=== PATIENT | female | born 1990 | race American Indian/Alaskan Native ===

== ENCOUNTER 2019-11-20 21:20 | Emergency (ER) | payer BC, OTHER ==
--- NOTE | 2019-11-20 21:33 | EDM.PDOC ---
ED HPI GENERAL MEDICAL PROBLEM - General Chief Complaint: Upper Extremity Injury/Pain Stated Complaint: POSSIBLE BLOOD CLOT LT LEG/DELIVERED BABY 11/14 Time Seen by Provider: 11/20/19 21:31 - History of Present Illness INITIAL COMMENTS - FREE TEXT/NARRATIVE: 29-year-old female presents the emergency room with left lower extremity pain. The patient is 5 days . Over the last 1-1/2 to 2 days is developed significant discomfort behind her knee. She has had progressive swelling around the knee but she has swelling throughout the extremity from being in a state. She is not having any breathing difficulties or shortness of breath no chest pain or chest pressure. She has no other complaints at this time. Left Upper Leg Pain Score (Numeric/FACES): 8 - Related Data Allergies Allergy/AdvReac Type Severity Reaction Status Date / Time No Known Allergies Allergy Verified 11/20/19 21:30 Home Meds: Home Meds . [No Known Home Meds] 11/20/19 [History] Review of Systems - Review of Systems Review Of Systems: See Below Constitutional: Reports: No Symptoms Respiratory: Reports: No Symptoms Cardiovascular: Reports: No Symptoms GI/Abdominal: Reports: No Symptoms Genitourinary: Reports: No Symptoms Musculoskeletal: Reports: No Symptoms Skin: Reports: No Symptoms Neurological: Reports: No Symptoms ED EXAM, GENERAL - Physical Exam Exam: See Below Exam Limited By: No Limitations General Appearance: Alert, No Apparent Distress Head: Atraumatic, Normocephalic Neck: Normal Inspection, Supple, Non-Tender, Full Range of Motion Respiratory/Chest: No Respiratory Distress, Lungs Clear, Normal Breath Sounds Cardiovascular: Regular Rate, Rhythm, No Edema, No Murmur GI/Abdominal: Normal Bowel Sounds, Soft, Non-Tender Back Exam: Other (Mild to moderate swelling both lower extremities. She has significant discomfort around the left knee especially in the popliteal fossa. She does not have a lot of calf tenderness does have some moderate thigh discomfort in the vicinity of the significant venous structures) Course - Vital Signs Last Recorded V/S: Last Vital Signs Temp 36.4 C 11/20/19 21: Pulse 80 11/20/19 21:27 Resp 18 11/20/19 21:27 BP 138/89 11/20/19 21:27 Pulse Ox 98 11/20/19 21:27 - Orders/Labs/Meds Orders: Active Orders 24 hr Category Date Time Status VL Duplex Lwr Ext Veins Ltd Lt [US] Stat Exams 11/20/19 21:49 Taken Labs: Laboratory Tests 11/20/19 11/20/19 11/20/19 Range/Units 22:05 22:05 22:05 WBC 5.50 (3.98-10.04) K/mm3 RBC 3.76 L (3.98-5.22) M/mm3 Hgb 10.6 L D (11.2-15.7) gm/dl Hct 33.9 L (34.1-44.9) % MCV 90.2 D (79.4-94.8) fl MCH 28.2 (25.6-32.2) pg MCHC 31.3 L (32.2-35.5) g/dl RDW Std Deviation 42.4 (36.4-46.3) fL Plt Count 281 (182-369) K/mm3 MPV 9.0 L (9.4-12.3) fl Neut % (Auto) 46.5 (34.0-71.1) % Lymph % (Auto) 38.5 (19.3-51.7) % [place] % (Auto) 8.7 (4.7-12.5) % Eos % (Auto) 5.5 (0.7-5.8) Baso % (Auto) 0.4 (0.1-1.2) % Neut # (Auto) 2.56 (1.56-6.13) K/mm3 Lymph # (Auto) 2.12 (1.18-3.74) K/mm3 [place] # (Auto) 0.48 H (0.24-0.36) K/mm3 Eos # (Auto) 0.30 (0.04-0.36) K/mm3 Baso # (Auto) 0.02 (0.01-0.08) K/mm3 PT 10.2 (9.7-12.0) SECONDS INR 0.93 APTT 27 (22-31) SECONDS Sodium 138 (136-145) mEq/L Potassium 3.6 (3.5-5.1) mEq/L Chloride 104 (98-107) mEq/L Carbon Dioxide 25 (21-32) mEq/L Anion Gap 12.6 (5-15) BUN 10 (7-18) mg/dL Creatinine 0.5 L (0.55-1.02) mg/dL Est Cr Clr Drug Dosing 207.31 mL/min Estimated GFR (MDRD) > 60 (>60) mL/min BUN/Creatinine Ratio 20.0 H (14-18) Glucose 87 (74-106) mg/dL Calcium 8.6 (8.5-10.1) mg/dL Total Bilirubin 0.3 (0.2-1.0) mg/dL AST 30 (15-37) U/L ALT 41 (14-59) U/L Alkaline Phosphatase 107 (46-116) U/L Total Protein 6.8 (6.4-8.2) g/dl Albumin 2.7 L (3.4-5.0) g/dl Globulin 4.1 gm/dL Albumin/Globulin Ratio 0.7 L (1-2) - Re-Assessments/Exams Free Text/Narrative Re-Assessment/Exam: 11/20/19 21:54 Proceed with a venous ultrasound to exclude blood clots d-dimer would not be very helpful 5 days . We will check some baseline labs as well. 11/20/19 23:35 Evaluation is unremarkable given her status she is got an anemia which is to be expected. But not severe. Ultrasound of the left leg shows no evidence of deep venous thrombosis. I discussed the findings of this with the patient and she is assured. I recommended she use her ibuprofen for her leg discomfort Departure - Departure Time of Disposition: 23:36 Disposition: Home, Self-Care 01 Clinical Impression: Left leg pain - Discharge Information Referrals: PCP,None [Primary Care Provider] - Forms: ED Department Discharge Additional Instructions: Return to the emergency room with any questions problems or worsening symptoms. Use your ibuprofen as directed be sure and take it with meals. Follow-up with your OB providers as scheduled, sooner if needed. Sepsis Event Note (ED) - Evaluation Sepsis Screening Result: No Definite Risk - Focused Exam Vital Signs: Vital Signs Temp Pulse Resp BP Pulse Ox 11/20/19 21:27 36.4 C 80 18 138/89 98 - My Orders Last 24 Hours: My Active Orders 11/20/19 21:49 VL Duplex Lwr Ext Veins Ltd Lt [US] Stat - Assessment/Plan Last 24 Hours: My Active Orders 11/20/19 21:49 VL Duplex Lwr Ext Veins Ltd Lt [US] Stat
[2019-11-20 23:46] VITALS: BP 121/91; PULSE 82
--- NOTE | 2019-11-21 07:26 | US ---
Left lower extremity deep venous ultrasound: Duplex and color Doppler evaluation was obtained of the left common femoral, proximal greater saphenous, superficial femoral, popliteal, posterior tibial and peroneal veins. Right common femoral vein was also evaluated. Comparison: No prior venous imaging is available. Findings: Normal phasic flow, augmentation and compression is seen. Impression: 1. No evidence of deep venous thrombosis within the left lower extremity or within the right common femoral vein. Diagnostic code #1 This report was dictated in MDT I agree with preliminary report from [facility], finalized on 11/21/19, 12:20 AM Central Daylight Time
== END 2019-11-20 23:47 | disposition home or self-care (01) ==
LOC: JD.ED 21:20
DX: O90.89 Other complications of the puerperium, not elsewhere classified (principal); M79.605 Pain in left leg
CPT/HCPCS: 36415; 80053; 85025; 85610; 85730; 93971-26-LT; 93971-LT; 99282; 99284-25

== ENCOUNTER 2022-02-02 13:44 | Inpatient (IN) | payer OTHER ==
[~2022-02-02 13:44] MED LIST: Ampicillin 2 GM in Sodium Chloride 0.9% 100 ML IV ONE; Bupivacaine/fentaNYL/NS 100 ML Bag EPIDUR ONE; Lactated Ringers 1,000 ML IV ONE
[2022-02-02] MEDS ORDERED: Ampicillin 1 GM in Sodium Chloride 0.9% 100 ML IV ONE (15:20)
[2022-02-02] MEDS ORDERED: Bupivacaine 0.25% 10 ML SDV EPIDUR ONE (15:20)
[2022-02-02] MEDS ORDERED: Diphtheria,Pertussis(Acell),Tetanus Vaccine 0.5 ML Syringe IM ONE (15:45)
[2022-02-02] MEDS ORDERED: Methylergonovine 0.2 MG/1 ML Amp IM ONE (16:50)
[2022-02-03] MEDS ORDERED: Measles, Mumps & Rubella Vaccine 0.5 ML SDV SUBCUT ONE (15:45)
[2022-02-03] MEDS ORDERED: Diphtheria,Pertussis(Acell),Tetanus Vaccine 0.5 ML Syringe IM ONE (15:45)
== END 2022-02-03 17:50 | disposition home or self-care (01) | DRG 807 ==
LOC: JD.OBCHECK 13:44 → JD.ZCENSUS 16:47
PROVIDERS: ADMIT Obstetrics & Gynecology; ATTEND Obstetrics & Gynecology
PROC: 10E0XZZ Delivery of Products of Conception, External Approach (ICD-10-PCS; principal; 2022-02-02)
PROC: 3E0R3BZ Introduction of Anesthetic Agent into Spinal Canal, Percutaneous Approach (ICD-10-PCS; 2022-02-02)
PROC: 3E0234Z Introduction of Serum, Toxoid and Vaccine into Muscle, Percutaneous Approach (ICD-10-PCS; 2022-02-02)
DX: O66.3 Obstructed labor due to other abnormalities of fetus (principal); Z37.0 Single live birth; Z3A.39 39 weeks gestation of pregnancy; O99.334 Smoking (tobacco) complicating childbirth; F17.210 Nicotine dependence, cigarettes, uncomplicated; O77.0 Labor and delivery complicated by meconium in amniotic fluid; Z23 Encounter for immunization; O70.0 First degree perineal laceration during delivery
CPT/HCPCS: 01967; 36415; 51701; 59025; 59409; 80306; 81001; 85025; 86592; 87653; J0290; J2210; J3490; J7120

== ENCOUNTER 2023-02-16 15:30 | Inpatient (IN) | payer OTHER, MEDICAID ==
[2023-02-16] MEDS ORDERED: Lidocaine 1% 50 ML MDV INJECT PRN (15:47)
[2023-02-16] MEDS ORDERED: Ondansetron 4 MG/2 ML SDV IVPUSH PRN (15:47)
[2023-02-16] MEDS ORDERED: Nalbuphine HCl 10 MG/ 1ML Amp IVPUSH PRN (15:47)
[2023-02-16] MEDS ORDERED: Oxytocin/Lactated Ringers 10 UNIT/1,000 ML BAG IV SCH ×2 (16:00)
[2023-02-16 16:08] LABS: BASOPHILS PERCENT AUTO 0.4 % (0.0-1.0); EOSINOPHILS ABSOLUTE AUTO 0.3 K/mm3 (0.0-0.4); EOSINOPHILS PERCENT AUTO 3.2 % (0.0-6.0); HEMATOCRIT 33.1 % (37.0-47.0); HEMOGLOBIN 10.6 gm/dl (12.0-16.0); IMMATURE GRAN ABSOLUTE AUTO 0.03 K/mm3 (0.00-0.05); IMMATURE GRAN PERCENT AUTO 0.4 % (0.0-0.4); LYMPHOCYTES ABSOLUTE AUTO 1.6 K/mm3 (1.0-4.8); LYMPHOCYTES PERCENT AUTO 20.1 % (24.0-44.0); MEAN CORPUSCULAR HEMOGLOBIN 25.4 pg (28.0-32.0); MEAN CORPUSCULAR VOLUME 79.4 fl (83.0-99.0); MEAN PLATELET VOLUME 9.1 fl (9.4-12.3); MONOCYTES ABSOLUTE AUTO 0.5 K/mm3 (0.0-0.8); MONOCYTES PERCENT AUTO 6.7 % (0.0-8.0); NEUTROPHILS ABSOLUTE AUTO 5.3 K/mm3 (1.8-7.7); NEUTROPHILS PERCENT AUTO 69.2 % (41.0-71.0); PLATELET COUNT,PLT 308 K/mm3 (150-400); RED BLOOD CELL COUNT 4.17 M/mm3 (4.10-5.30); WHITE BLOOD CELL COUNT,WBC 7.72 K/mm3 (3.9-11.3)
[2023-02-16] MEDS: Lactated Ringers 1,000 ML IV SCH ×4 (16:48→23:16)
[2023-02-16 19:00] LABS: BARBITURATE SCREEN,URINE NEGATIVE (CUTOFF=200); BENZODIAZEPINES SCREEN,URINE NEGATIVE (CUTOFF=150); BUPRENORPHINE SCREEN,URINE NEGATIVE (CUTOFF=10); METHADONE SCREEN, URINE NEGATIVE (CUTOFF=200); METHAMPHETAMINES SCREEN, URINE NEGATIVE (CUTOFF=500); OXYCODONE SCREEN,URINE NEGATIVE (CUT0FF=100); PROPOXYPHENE SCREEN,URINE NEGATIVE (CUTOFF=300); THC SCREEN,URINE 20 NG/ML NEGATIVE (CUTOFF=50)
[2023-02-16 19:06] LABS: AMPHETAMINES SCREEN, URINE NEGATIVE (CUTOFF=500)
[2023-02-16] MEDS ORDERED: fentaNYL 100 MCG/2 ML SDV EPIDUR PRN (19:49)
[2023-02-16] MEDS ORDERED: ePHEDrine 50 MG/ML SDV IVPUSH PRN (19:49)
[2023-02-16] MEDS ORDERED: diphenhydrAMINE 50 MG/ML SDV IVPUSH PRN (19:49)
[2023-02-16] MEDS ORDERED: Bupivacaine/fentaNYL/NS 100 ML Bag EPIDUR PRN (19:49)
[2023-02-17] MEDS ORDERED: Bupivacaine 0.25% 10 ML SDV ONE
[2023-02-17] MEDS ORDERED: Lidocaine 1% 10 ML MDV ONE
[2023-02-17] MEDS ORDERED: Misoprostol 200 MCG Tab ONE (01:10)
[2023-02-17] MEDS ORDERED: Misoprostol 200 MCG Tab BUCCAL STA (01:31)
[2023-02-17] MEDS ORDERED: Ibuprofen 600 MG Tab PO PRN (02:17)
[2023-02-17] MEDS ORDERED: Acetaminophen 325 MG Tab PO PRN (02:17)
[2023-02-17] MEDS ORDERED: Benzocaine/Menthol 20%-0.5% Spray 78 GM Cannister TOP PRN (02:17)
[2023-02-17] MEDS ORDERED: Witch Hazel Medicated Pads 40/Jar TOP PRN (02:17)
[2023-02-18 01:33] LABS: HEMATOCRIT 30.1 % (37.0-47.0); HEMOGLOBIN 9.4 gm/dl (12.0-16.0); MEAN CORPUSCULAR HEMOGLOBIN 25.1 pg (28.0-32.0); MEAN CORPUSCULAR HGB CONC 31.2 g/dl (32.0-36.0); MEAN CORPUSCULAR VOLUME 80.5 fl (83.0-99.0); MEAN PLATELET VOLUME 9.6 fl (9.4-12.3); PLATELET COUNT,PLT 236 K/mm3 (150-400); RED BLOOD CELL COUNT 3.74 M/mm3 (4.10-5.30); WHITE BLOOD CELL COUNT,WBC 9.11 K/mm3 (3.9-11.3)
[2023-02-18] MEDS ORDERED: Docusate Sodium 100 MG Cap PO PRN (02:48)
[2023-02-18 13:01] VITALS: BP 124/85; PULSE 81
== END 2023-02-18 13:00 | disposition home or self-care (01) | DRG 807 ==
LOC: JD.OBCHECK 15:30 → JD.OB 15:32 → JD.OBCHECK 15:40 → JD.OB 15:41 → OBSVTOIN 02-17 01:19 → JD.OB 02-17 01:20
PROVIDERS: ADMIT Obstetrics & Gynecology; ATTEND Obstetrics & Gynecology
PROC: 10E0XZZ Delivery of Products of Conception, External Approach (ICD-10-PCS; principal; 2023-02-17)
PROC: 10907ZC Drainage of Amniotic Fluid, Therapeutic from Products of Conception, Via Natural or Artificial Opening (ICD-10-PCS; 2023-02-17)
PROC: 10H07YZ Insertion of Other Device into Products of Conception, Via Natural or Artificial Opening (ICD-10-PCS; 2023-02-17)
DX: O36.8130 Decreased fetal movements, third trimester, not applicable or unspecified (principal); Z37.0 Single live birth; Z3A.40 40 weeks gestation of pregnancy; O48.0 Post-term pregnancy
CPT/HCPCS: 36415; 51702; 59025; 59409; 80306; 85025; 85027; 86592; 86850; 86900; 86901; A9270-GY; J2405; J2590; J3010; J3490; J7120